=== PATIENT | male | born 1995 | race Caucasian/White ===

== ENCOUNTER 2020-10-07 14:29 | Emergency (ER) | payer OTHER, SELFPAY ==
--- NOTE | ~2020-10-07 | XR_ITS ---
XR ankle RT min 3V DATE: 10/07/2020 15:00 INDICATION: Dropped along the ankle 3 weeks ago. Medial pain. TECHNIQUE: 4 views COMPARISON: None FINDINGS: No fracture or dislocation of the ankle or disruption of the ankle mortise. No periosteal r eaction or bone destruction. IMPRESSION: Negative Reviewed, dictated and finalized at location A. IMPRESSION: Negative
--- NOTE | 2020-10-07 14:35 | ED.LOWEXIN ---
HPI - Extremity Injury (Lower) General Chief Complaint: Extremity Injury, Lower Stated Complaint: right ankle pain Time Seen by Provider: 10/07/20 14:35 Source: patient and RN notes reviewed History of Present Illness HPI Narrative: Patient is a 24-year-old male who presents the urgent care with complaints of right ankle pain. Patient states that 3 weeks ago he dropped a log onto the right ankle and Wednesday he then twisted it again. Patient states that he was walking in a field and stepped in a hole, twisting his ankle. Patient has been wearing a wrap around the ankle but denies of any use of medication for pain. No other acute complaints. No acute distress noted. Patient aware of the plan of care. Some parts of this dictation were generated by voice recognition software and may contain typographical and/or grammatical inaccuracies. Related Data Allergies Allergy/AdvReac Type Severity Reaction Status Date / Time No Known Allergies Allergy Unverified 01/05/17 14:32 Review of Systems Review of Systems: Narrative: CONSTITUTIONAL: Denies fever, chills, or sweats. EYES: Denies visual changes, redness, or discharge. ENT: Denies rhinorrhea, congestion, sore throat, or otalgia. CARDIOVASCULAR: Denies chest pain, palpitations, or edema. RESPIRATORY: Denies cough or dyspnea. GASTROINTESTINAL: Denies abdominal pain, nausea, vomiting, or diarrhea. GENITOURINARY: Denies dysuria or hematuria. SKIN: Denies rash or itching. MUSCULOSKELETAL: Reports of right ankle pain NEUROLOGIC: Denies headache, numbness, or weakness. All other systems reviewed are negative, except as documented in HPI. PMFSH Family History Family History (Updated 03/12/17 @ 10:35 by DOCTOR UNKNOWN) Father Patient's father is in good health Mother Family history of malignant melanoma, Onset Age: 50 Other Diabetes mellitus Family history of arthritis Family history of mental disorder Social History Social History Smoking status: Heavy tobacco smoker Second hand tobacco smoke exposure: Yes Alcohol intake: current Comments At the time of my signature, I reviewed and agree with the nursing past medical, surgical, social, and family history. There is no relevant family history pertinent to the patient complaint. Exam Narrative: Exam Narrative: GENERAL: This is a well-nourished, well-developed patient, in no apparent distress. HEAD: normocephalic, atraumatic. EYES: PERRL. Sclera clear/white. Vision is grossly intact. EARS: External ears normal NOSE: External nose normal with no obvious nasal discharge, nares without redness, no rhinorrhea. THROAT: Mucous membranes moist, posterior pharynx clear. NECK: Neck supple CARDIOVASCULAR: Regular rate SKIN: 4 cm superficial linear abrasion noted to the right medial ankle. Warm, intact with no suspicious lesions or rash, good texture and turgor. NEURO: awake, alert, and oriented to person, place and time. There were no obvious focal neurologic abnormalities. EXTREMITIES: Very mild right medial malleolus tenderness with lateral right malleolus mild edema. Range of motion within normal limits. Pain exacerbated with adduction to the right ankle. Positive strong right pedal pulse with capillary refill less than 2 seconds. Course Vital Signs Vital signs: Vital Signs Temperature 98 F 10/07/20 14:38 Pulse Rate 82 10/07/20 14:38 Respiratory Rate 20 10/07/20 14:38 Blood Pressure 122/73 10/07/20 14:38 Pulse Oximetry 98 10/07/20 14:38 Temperature 98 F 10/07/20 14:38 Pulse Rate 82 10/07/20 14:38 Respiratory Rate 20 10/07/20 14:38 Blood Pressure 122/73 10/07/20 14:38 Pulse Oximetry 98 10/07/20 14:38 Reviewed MDM - Extremity Injury (Lower) MDM Narrative Medical decision making narrative: Reviewed x-ray results with the patient. He is aware that x-ray was negative for any abnormality or bone fracture. Advised the patient to continue using the wrap as needed for
[2020-10-07 14:38] VITALS: BP 122/73; PULSE 82; RESP 20; TEMP 36.6; O2SAT 98
== END 2020-10-07 15:25 | disposition home or self-care (01) ==
PROVIDERS: Emergency Provider Nurse Practitioner Family; PCP Physician Assistant
DX: S93.401A Sprain of unspecified ligament of right ankle, initial encounter (principal); S96.911A Strain of unspecified muscle and tendon at ankle and foot level, right foot, initial encounter; X50.9XXA Other and unspecified overexertion or strenuous movements or postures, initial encounter; F17.200 Nicotine dependence, unspecified, uncomplicated
CPT/HCPCS: 73610; 99203; G0463

== ENCOUNTER 2020-10-08 11:03 | Emergency (ER) | payer OTHER, SELFPAY ==
--- NOTE | ~2020-10-08 | XR_ITS ---
EXAMINATION: XR chest 1V portable DATE: 10/08/2020 11:59 INDICATION: Cough and fever. TECHNIQUE: A single frontal view of the chest was obtained. COMPARISON: Chest 2 views 06/18/2011 FINDINGS: The chest demonstrates clear lungs without pneumonia, pleural effusion, or pneumothorax. Th e heart size is normal. IMPRESSION: 1. No acute cardiopulmonary disease. Reviewed, dictated and finalized at location B.
[2020-10-08 11:48] VITALS: BP 109/71; PULSE 90; RESP 15; RESP 16; TEMP 36.7; O2SAT 100; O2SAT 98
--- NOTE | 2020-10-08 11:59 | ED.FEVER ---
HPI - Fever General Chief Complaint: Fever Stated Complaint: fever Time Seen by Provider: 10/08/20 11:29 History of Present Illness HPI Narrative: Patient is a 24-year-old male who presents ER with fever. Ongoing since yesterday evening. As high as 100.2 ?F. Associate with sinus congestion and productive cough. No dyspnea. No known sick contacts or Covid exposures. He does need a Covid test for work. There is no chest pain or chest pressure. He has not taken any supportive care medications. Related Data Allergies Allergy/AdvReac Type Severity Reaction Status Date / Time No Known Allergies Allergy Unverified 01/05/17 14:32 Review of Systems Review of Systems: All systems reviewed & are unremarkable except as noted in HPI and below Constitutional: Constitutional: Denies chills, Denies fatigue and Reports fever(s) ENT: Reports nasal congestion and Reports sore throat Cardiovascular: Cardiovascular: Denies chest pain, Denies rapid heart rate and Denies radiating jaw, neck or arm pain Respiratory: Respiratory: Reports cough, Denies dyspnea and Denies wheezing PMFSH Past Medical History Medical History (Updated 10/08/20 @ 12:41 by David Pillai MD) Healthy adult male Surgical History Surgical History (Updated 10/08/20 @ 12:03 by David Pillai MD) H/O hand surgery Family History Family History (Updated 03/12/17 @ 10:35 by DOCTOR UNKNOWN) Father Patient's father is in good health Mother Family history of malignant melanoma, Onset Age: 50 Other Diabetes mellitus Family history of arthritis Family history of mental disorder Social History Social History Smoking status: Heavy tobacco smoker Second hand tobacco smoke exposure: Yes Alcohol intake: current Gender identity (if verbalized by the patient): Male Exam Narrative: Exam Narrative: GENERAL: Well-appearing, well-nourished, and in no acute distress. HEAD: Normocephalic, atraumatic. ENT: Mucous membranes moist. CHEST: Clear to auscultation. No respiratory distress. HEART: Regular rate and rhythm. Normal peripheral pulses. EXTREMITIES: Normal range of motion. No edema. NEURO: Alert and oriented x3. PSYCH: Normal mood and affect. 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 Patient aware he should be in isolation at home. Vital Signs Vital signs: Vital Signs Temperature 98.0 F 10/08/20 11:48 Pulse Rate 90 10/08/20 11:48 Respiratory Rate 15 10/08/20 11:48 Blood Pressure 109/71 10/08/20 11:48 Pulse Oximetry 100 10/08/20 11:48 Temperature 98.0 F 10/08/20 11:48 Pulse Rate 90 10/08/20 11:48 Respiratory Rate 16 10/08/20 11:48 Blood Pressure 109/71 10/08/20 11:48 Pulse Oximetry 100 10/08/20 11:48 MDM - Fever Lab Data Labs: Lab Results 10/08/20 Range/Units 11:38 SARS-CoV-2 RNA (RT-PCR) Pending Imaging Data Radiologist's impression: ITS Impressions Chest X-Ray 10/08/20 12:03 IMPRESSION: 1. No acute cardiopulmonary disease. Discharge Plan Discharge Clinical Impression: Viral infection Patient Disposition: Home, Self-Care Condition: Stable Instructions: Viral Syndrome (ED) Additional Instructions: You likely have a viral upper respiratory infection causing your symptoms. You were swabbed for Covid. Please self isolate at home until you receive the negative results or you have been cleared by the health department. Take the medications prescribed as supportive care to help with your symptoms. Return the ER if you cannot breathe, you lose consciousness, you have additional concerns. Prescriptions: New fluticasone propionate [Flonase Allergy Relief] 50 mcg/actuation spray,suspension 1 spray intranasal DAILY Qty: 16 RF: 0 pseudoephedrine-guaifenesin [Mucinex D Maximum Strength] 120-1,200 mg tablet extended release 12 hr 1 tablet PO Q12H PRN (Reason: cold symptoms) Qty: 10 RF: 0 Follow-up/Re
[2020-10-08 12:49] VITALS: BP 118/75; PULSE 82; RESP 18; O2SAT 100
[2020-10-08 18:55] LABS: SARS-CoV-2 RNA PCR Negative
== END 2020-10-08 12:50 | disposition home or self-care (01) ==
PROVIDERS: Emergency Provider Emergency Medicine; PCP Physician Assistant
DX: Z20.822 Contact with and (suspected) exposure to COVID-19 (principal); B34.9 Viral infection, unspecified
CPT/HCPCS: 71045; 99283; C9803; U0003; U0005

== ENCOUNTER 2021-03-05 18:15 | Emergency (ER) | payer OTHER, SELFPAY ==
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
[2021-03-05 18:26] VITALS: BP 123/74; PULSE 62; RESP 14; TEMP 36.6; O2SAT 99
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
[2021-03-05 21:28] VITALS: BP 121/83; PULSE 63; RESP 16; O2SAT 98
== END 2021-03-05 20:56 | disposition home or self-care (01) ==
LOC: ANHED 20:14
PROVIDERS: Emergency Provider Emergency Medicine; PCP Physician Assistant
DX: S13.4XXA Sprain of ligaments of cervical spine, initial encounter (principal); V43.52XA Car driver injured in collision with other type car in traffic accident, initial encounter
CPT/HCPCS: 72125; 99284

== ENCOUNTER 2021-03-12 07:51 | Emergency (ER) | payer OTHER, SELFPAY ==
--- NOTE | ~2021-03-12 | XR_ITS ---
XR lumbar spine 2-3V DATE: 03/12/2021 09:40 INDICATION: Low back pain. Lifting injury. TECHNIQUE: AP, lateral, coned lateral lumbosacral views COMPARISON: 06/08/2017 lumbar spine FINDINGS: Normal alignment. No fracture or bone destruction. The lumbar pedicles are intact. No spond ylolisthesis. The lumbar levels interspaces are well preserved. The sacroiliac joints appear normal. IMPRESSION: Negative Reviewed, dictated and finalized at location B. IMPRESSION: Negative
[2021-03-12 08:00] VITALS: BP 111/80; PULSE 64; RESP 16; TEMP 36.4; O2SAT 95
--- NOTE | 2021-03-12 09:24 | ED.BACK ---
HPI - Back Pain/Injury General Chief Complaint: Back Pain/Injury Stated Complaint: back pain/injury Time Seen by Provider: 03/12/21 09:07 Source: patient Mode of arrival: ambulatory Limitations: no limitations History of Present Illness HPI Narrative: This is a 25 year old male that presents to the ER for low back pain present since an injury at work. Reports he was pulling something heavy at work a couple days ago. Since he has had constant pain in his low back. He has not taken any pain medication for this. He presented to the ER today as he is not getting any better. The pain is a constant dull ache. Denies fever, saddle anesthesia, or bowel/bladder incontinence. Related Data Home Medications Medication Instructions Recorded Confirmed hydroxyzine pamoate PRN 03/05/21 03/05/21 aripiprazole [Abilify] 15 mg PO DAILY 03/12/21 03/12/21 Allergies Allergy/AdvReac Type Severity Reaction Status Date / Time No Known Allergies Allergy Verified 03/05/21 20:00 Review of Systems Review of Systems: CONSTITUTIONAL: Denies fever SKIN: Denies rash MUSCULOSKELETAL: Reports back pain, joint pain, and myalgia. NEUROLOGIC: Denies numbness, or weakness. All systems reviewed & are unremarkable except as noted in HPI and below PMFSH Past Medical History Medical History Healthy adult male Surgical History Surgical History H/O hand surgery Family History Family History Father Patient's father is in good health Mother Family history of malignant melanoma, Onset Age: 50 Other Diabetes mellitus Family history of arthritis Family history of mental disorder Social History Social History (Updated 03/12/21 @ 09:29 by Laila Blackburn PA-C) Smoking status: Former smoker Alcohol intake: current Gender identity (if verbalized by the patient): Male Exam Narrative: GENERAL: Well-appearing, well-nourished, and in no acute distress. HEAD: Normocephalic, atraumatic. EYES: EOMI. CHEST: Clear to auscultation. No respiratory distress. No wheezes rales or rhonchi HEART: Regular rate and rhythm. No murmur heard. Normal peripheral pulses. BACK: Tender to palpation of lumbar paraspinal musculature EXTREMITIES: Normal range of motion. No edema. Strength equal in bilateral lower extremities (5/5) SKIN: Warm, dry, no rash. NEURO: No focal deficits. Alert and oriented x3. PSYCH: Normal mood and affect Course Vital Signs Vital signs: Vital Signs Temperature 97.6 F 03/12/21 08:00 Pulse Rate 64 03/12/21 08:00 Respiratory Rate 16 03/12/21 08:00 Blood Pressure 111/80 03/12/21 08:00 Pulse Oximetry 95 03/12/21 08:00 Temperature 97.6 F 03/12/21 08:00 Pulse Rate 64 03/12/21 08:00 Respiratory Rate 16 03/12/21 08:00 Blood Pressure 111/80 03/12/21 08:00 Pulse Oximetry 95 03/12/21 08:00 MDM - Back Pain/Injury MDM Narrative Medical decision making narrative: Patient presents the emergency department for low back pain after lifting injury at work a couple of days ago. He is afebrile and nontoxic-appearing. He is neurologically intact. Lumbar spine x-rays without acute findings. Patient instructed to rest, ice and take [id number] pain medication as needed. He will be prescribed muscle relaxer as needed for pain. He is to follow-up with primary care doctor. He was given warnings to return to the ER Imaging Data Radiologist's impression: ITS Impressions Lumbar Spine X-Ray 03/12/21 09:47 IMPRESSION: Negative Critical Care Time Critical Care Time Critical Care Time: No Discharge Plan Discharge Clinical Impression: Strain of lumbar region Qualifiers: Encounter type: initial encounter Qualified Code(s): S39.012A - Strain of muscle, fascia and tendon of lower back, initial encounter Patient
[2021-03-12] MEDS: ACETAMINOPHEN 500 MG TABLET 1000 MG PO (09:43)
== END 2021-03-12 10:36 | disposition home or self-care (01) ==
PROVIDERS: Emergency Provider Emergency Medicine; PCP Physician Assistant
DX: S39.012A Strain of muscle, fascia and tendon of lower back, initial encounter (principal); Z87.891 Personal history of nicotine dependence; X50.0XXA Overexertion from strenuous movement or load, initial encounter
CPT/HCPCS: 72100; 99283; A9270

== ENCOUNTER 2021-03-14 15:58 | Emergency (ER) | payer OTHER, SELFPAY ==
[2021-03-14 16:10] VITALS: BP 135/64; PULSE 79; RESP 16; TEMP 36.8; O2SAT 98
[2021-03-14 16:22] VITALS: BP 135/64; PULSE 79; RESP 16; TEMP 36.8; O2SAT 98
--- NOTE | 2021-03-14 16:53 | ED.BACK ---
HPI - Back Pain/Injury General Chief Complaint: Back Pain/Injury Stated Complaint: Back Injury Time Seen by Provider: 03/14/21 16:43 Source: patient and RN notes reviewed Mode of arrival: ambulatory Limitations: no limitations History of Present Illness HPI Narrative: Patient presents today requesting a note to return to work. He was seen in the ER on 03/12/2021 after an injury on 03/09/2021 where he injured his low back at work. An x-ray was done that was subsequently negative. 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 States his symptoms progressively improved and he currently rates his pain 2/10. Denies any numbness or tingling in the extremities. Denies radiation of the pain. He has not been taking anything for his symptoms and states he feels better. Note that he received from the ER states he could not return to work unless cleared by his PCP. His PCP could not see him until March. He wanted to come in today to be cleared to return to work. Patient states this is not a Workmen's Comp. claim. Related Data Home Medications Medication Instructions Recorded Confirmed hydroxyzine pamoate 25 mg PO TID 03/05/21 03/05/21 aripiprazole [Abilify] 15 mg PO DAILY 03/12/21 03/14/21 Allergies Allergy/AdvReac Type Severity Reaction Status Date / Time No Known Allergies Allergy Verified 03/14/21 16:21 Review of Systems Review of Systems: CONSTITUTIONAL: Denies body aches, fever, chills, or sweats. EYES: Denies visual changes, redness, or discharge. ENT: Denies rhinorrhea, congestion, sore throat, or otalgia. CARDIOVASCULAR: Denies chest pain, palpitations, or edema. RESPIRATORY: Denies cough or dyspnea. GASTROINTESTINAL: Denies abdominal pain, nausea, vomiting, or diarrhea. GENITOURINARY: Denies dysuria or hematuria. SKIN: Denies rash, itching, or wounds. MUSCULOSKELETAL: Denies joint pain, or myalgia.+ Low back pain NEUROLOGIC: Denies headache, numbness, tingling, or weakness. PSYCH: Denies depression or anxiety. [facility] Past Medical History Medical History Healthy adult male Surgical History Surgical History H/O hand surgery Family History Family History Father Patient's father is in good health Mother Family history of malignant melanoma, Onset Age: 50 Other Diabetes mellitus Family history of arthritis Family history of mental disorder Social History Social History Smoking status: Former smoker Alcohol intake: current Gender identity (if verbalized by the patient): Male Comments At time of signature, I have reviewed and agree with nursing past medical, surgical, social and family history unless otherwise noted. Please see nursing chart for further information. There is no relevant family history pertinent to the presenting complaint Exam Narrative: GENERAL: Well-appearing, well-nourished, and in no acute distress. HEAD: Normocephalic, atraumatic. EYES: EOMI. No redness or drainage. Conjunctivae normal. ENT: Mucous membranes pink and moist. NECK: Normal AROM. CHEST: No respiratory distress. MUSCULOSKELETAL: No bony tenderness over the thoracic or lumbar spine. No lumbar or thoracic paraspinal muscle tenderness bilaterally. Distal sensation intact. Capillary refill normal. Saddle sensation intact. EXTREMITIES: Normal range of motion. No edema. SKIN: Warm, dry, no rash. Capillary refill normal. Normal skin turgor. NEURO: No focal deficits. Alert and oriented x3. Gait steady. PSYCH: Normal affect. No signs of depression or anxiety. Course Vital Signs Vital signs: Vital Signs Temperature 98.3 F 03/14/21 16:10 Pulse Rate 79 03/14/21 16:10 Respiratory Rate 16 03/14/21 16:10 Blood Pressure 135/
== END 2021-03-14 17:02 | disposition home or self-care (01) ==
PROVIDERS: Emergency Provider Nurse Practitioner
DX: S39.012A Strain of muscle, fascia and tendon of lower back, initial encounter (principal); X58.XXXA Exposure to other specified factors, initial encounter; Z87.891 Personal history of nicotine dependence
CPT/HCPCS: 99211; G0463

== ENCOUNTER 2021-07-09 16:27 | Emergency (ER) | payer OTHER, SELFPAY ==
[2021-07-09 16:48] VITALS: BP 118/71; PULSE 106; RESP 18; TEMP 36.8; O2SAT 97
[2021-07-09] MEDS: ONDANSETRON INJ 4 MG/2 ML VIAL IV PUSH (17:46)
[2021-07-09] MEDS: SODIUM CHLORIDE 0.9% IV 1,000 ML 999 ML IV CONT (17:46)
[2021-07-09 17:52] LABS: Basophils Percent Auto 0.2 % (0.2-1.2); Hematocrit 51.4 % (42.0-52.0); Immature Granulocyte Absolute 0.03 K/mm3 (0.00-0.031); Immature Granulocyte Percent A 0.3 % (0-0.5); Lymphocytes Absolute Auto 0.68 K/mm3 (0.9-3.2); Lymphocytes Percent Auto 6.3 % (18.3-44.2); Mean Corpuscular HGB Conc 33.1 g/dl (32-36); Mean Corpuscular Hemoglobin 29.3 pg (26-34); Mean Corpuscular Volume 88.6 fl (80-100); Mean Platelet Volume 11.6 fl (7.4-10.4); Monocytes Absolute Auto 0.3 K/mm3 (0.1-0.6); Monocytes Percent Auto 2.9 % (2.6-8.5); Neutrophils Absolute Auto 9.8 K/mm3 (1.3-6.7); Neutrophils Percent Auto 90.3 % (45.5-73.1); Platelet Count Result 219 k/mm3 (150-375); Red Cell Distribution Width 13.8 % (11.5-14.5); White Blood Count 10.9 K/mm3 (4.5-10.0)
[2021-07-09 18:02] LABS: Add Urine Microscopic? YES; Appearance Urine Cloudy (Clear); Bilirubin Urine Negative (Negative); Blood Urine Negative (Negative); Color Urine Amber (Yellow); Glucose Urine UA Negative (Negative); Ketones Urine Negative (Negative); Leukocyte Esterase Ur Negative LEU/UL (Negative); Mucus Urine Heavy /lpf; Nitrate Urine Negative (Negative); Protein Urine 1+ mg/dL (Negative); RBC Urine 0-2 /hpf (0-2); Squamous Epithelial Cell Urine Rare /hpf (Few); Urobilinogen Urine Negative mg/dL (<2.0); WBC Urine 0-3 /hpf
[2021-07-09 18:03] LABS: Alanine Aminotransferase 191 U/L (4-50); Albumin Level 5.1 g/dL (3.5-5.1); Alkaline Phosphatase 101 U/L (38-126); Anion Gap 10 mmol/L (8-16); Aspartate Amino Transferase 97 U/L (17-59); Bilirubin,Total 0.8 mg/dL (0.2-1.3); Blood Urea Nitrogen 20 mg/dL (9-20); Calcium 9.9 mg/dL (8.4-10.2); Carbon Dioxide 25 mmol/L (22-30); Chloride 106 mmol/L (98-107); Estimated CRCL calculation 155 ml/min; Estimated Glomerular Filt Rate > 60; Glucose 122 mg/dL (65-110); Lipase 32 U/L (23-300); Potassium 4.9 mmol/L (3.4-5.0); Sodium 141 mmol/L (137-145)
[2021-07-09 18:05] LABS: Specific Grav Ur 1.031 (1.001-1.035)
--- NOTE | 2021-07-09 19:02 | PC.NURSE ---
ice chips provided
--- NOTE | 2021-07-09 19:24 | ED.NAVMDI ---
HPI - Nausea/Vomiting/Diarrhea General Chief complaint: Nausea/Vomiting/Diarrhea Stated complaint: diarrhea and vomiting Time Seen by Provider: 07/09/21 17:20 Source: patient Mode of arrival: ambulatory Limitations: no limitations History of Present Illness HPI Narrative: Patient is 25-year-old male with chief complaint of nausea, vomiting and diarrhea for 1 day. Patient reports that his and children at the same symptoms multiple days ago but have now improved. Patient reports that he is having trouble eating or drinking anything without vomiting. He reports another close contact began vomiting today. Patient reports diffuse abdominal cramping associated with the symptoms. Patient denies fever, chills, shortness of breath, chest pain. Patient reports that he thought off of work so he had to come to be evaluated. Related Data Home Medications Medication Instructions Recorded Confirmed hydroxyzine pamoate 25 mg PO TID 03/05/21 03/05/21 cariprazine [Vraylar] 1.5 mg PO DAILY 07/09/21 Allergies Allergy/AdvReac Type Severity Reaction Status Date / Time No Known Allergies Allergy Verified 07/09/21 17:19 Review of Systems Review of Systems: CONSTITUTIONAL: Denies fever, chills, or sweats. EYES: Denies visual changes, redness, or discharge. ENT: Denies rhinorrhea, congestion, sore throat, or otalgia. CARDIOVASCULAR: Denies chest pain, palpitations, or edema. RESPIRATORY: Denies cough or dyspnea. GASTROINTESTINAL: Reports abdominal pain, nausea, vomiting, or diarrhea. GENITOURINARY: Denies dysuria or hematuria. SKIN: Denies rash or itching. MUSCULOSKELETAL: Denies back pain, joint pain, or myalgia. NEUROLOGIC: Denies headache, numbness, dizziness, or weakness. PSYCHIATRIC: Denies anxiety or depression. [facility] Past Medical History Medical History Healthy adult male Surgical History Surgical History H/O hand surgery Family History Family History Father Patient's father is in good health Mother Family history of malignant melanoma, Onset Age: 50 Other Diabetes mellitus Family history of arthritis Family history of mental disorder Social History Social History Smoking status: Former smoker Alcohol intake: current Gender identity (if verbalized by the patient): Male Exam Narrative: GENERAL: Well-appearing, well-nourished, and in no acute distress. Nontoxic in appearance. HEAD: Normocephalic, atraumatic. EYES: PERRLA and EOMI. CHEST: Clear to auscultation. No respiratory distress. No wheezes rales or rhonchi HEART: Regular rate and rhythm. ABDOMEN: Soft, diffusely tender to lower abdomen, nondistended, normal active bowel sounds. EXTREMITIES: Normal range of motion. No edema. SKIN: Warm, dry, no rash. NEURO: No focal deficits. Alert and oriented x3. PSYCH: Normal mood and affect. Course Vital Signs Vital signs: Vital Signs Temperature 98.3 F 07/09/21 16:48 Pulse Rate 106 H 07/09/21 16:48 Respiratory Rate 18 07/09/21 16:48 Blood Pressure 118/71 07/09/21 16:48 Pulse Oximetry 97 07/09/21 16:48 Temperature 98.3 F 07/09/21 16:48 Pulse Rate 90 07/09/21 20:31 Respiratory Rate 17 07/09/21 20:31 Blood Pressure 120/76 07/09/21 20:31 Pulse Oximetry 98 07/09/21 20:31 MDM - Nausea/Vomiting/Diarrhea MDM Narrative Medical decision making narrative: Patient lab work is appropriate. Patient has passed p.o. challenge after Zofran administration. Patient has close contacts with the same symptoms so it is likely viral gastroenteritis. Patient has been instructed to treat symptomatically and to return to emergency department for further evaluation imaging if his symptoms persist or worsen. Patient is in agreement
[2021-07-09 20:31] VITALS: BP 120/76; PULSE 90; RESP 17; O2SAT 98
== END 2021-07-09 20:34 | disposition home or self-care (01) ==
PROVIDERS: Physician Assistant; Emergency Provider Family Medicine; PCP Physician Assistant
DX: K52.9 Noninfective gastroenteritis and colitis, unspecified (principal); Z87.891 Personal history of nicotine dependence
CPT/HCPCS: 36415; 80053; 81001; 83690; 85025; 96361; 96374; 99284; J2405; J7030